=== PATIENT | male | born 1980 | race Caucasian/White ===

== ENCOUNTER 2016-10-26 09:07 | Emergency (ER) | payer OTHER ==
--- NOTE | 2016-10-26 11:25 | ED NURSING NOTES ---
Clinical Report - Nurses [facility] [address] [place] [address] 10/26/2016 9:08 Patient: FRANK MEDINA TRIAGE Triage time 09:13. Acuity: LEVEL 3. Chief Complaint: ABDOMINAL PAIN and NAUSEA. Alert. NITA COMA SCORE: [place] Coma Scale: 15- eyes open spontaneously (4); best verbal response- oriented x 4 (5); best motor response- obeys commands (6). --09:19 Cynthia Vasquez R.N. 09:13 10/26/16. BP: 163/89. HR: 47. RR: 18. O2 saturation: 100% on room air. Temp: 97.5 F (oral). Pain level now: 810. --09:19 Cynthia Vasquez R.N. Weight: 116.5 kg stated. Height/Length: 67 inches Per Patient. BMI: 40.3. --09:15 Cynthia Vasquez R.N. Medications None. --09:14 Cynthia Vasquez R.N. Allergies No Known Drug Allergy. --09:14 Cynthia Vasquez R.N. History Arrived by private vehicle. Historian: patient. Unaccompanied. Primary physician (none). Onset. (at about 0500). Describes the quality as "pain" and ( constant). Relates location as in the right upper quadrant. SOCIAL HX: Never smoker. Occasional alcohol use. No drug use. FALL RISK ASSESSMENT: Fall risk assessment completed. No fall risk identified. FUNCTIONAL ASSESSMENT: Functional assessment: no impairments noted. LEARNING NEEDS ASSESSMENT: The learning needs assessment revealed no barriers. --09:19 Cynthia Vasquez R.N. PROBLEMS: no known problems. ADDITIONAL SURGERIES: no known surgeries. Assessment GENERAL / NEURO / PSYCH: The patient is awake and alert, is oriented and cooperative and appears uncomfortable. He has good eye contact. RESPIRATORY: Respirations not labored. SKIN: Skin is warm and dry. --09:19 Pedro, Cynthia, R.N. Interventions ID band on patient. To treatment room. --09:19 Cynthia Vasquez R.N. PHYSICAL ASSESSMENT 09:30. Ambulatory to room. GENERAL / NEURO / PSYCH: The patient is awake and alert, appears uncomfortable and is oriented and cooperative. He appears uncomfortable and has good eye contact. RESPIRATORY: Respirations not labored. SKIN: Skin is warm and dry. --10:35 Cynthia Vasquez R.N. NURSING PROGRESS NOTES EKG time: (938). EKG was ordered, performed by a tech and shown to the ED physician. --09:41 Amauri Courtney 09:30 10/26/2016 Site #1 started via IV in the left hand with an 20g angiocath, with aseptic technique and good blood return; one attempt. Saline lock flushed with 10 mL saline. --09:45 Cynthia Vasquez R.N. 09:30 10/26/2016 Started bag #1 1000 mL IV Fluids IV NS (Saline); at 1000 mL/hr over 1 hour(s) via site #1 --09:46 Cynthia Vasquez R.N. 09:46 10/26/2016 Reglan (Metoclopramide HCl) IVP 10 mg given over 2 minute(s) via site #1. Allergies verified and confirmed 5 rights. IV patency established. IV site checked: no pain, redness, or swelling. IV flushed thoroughly pre- and post-medication administration. IVP given by RN. --09:46 Cynthia Vasquez R.N. 09:46 10/26/2016 PROTONIX (Pantoprazole Sodium) IVP 40 mg given over 5 minute(s) via site #1. Allergies verified and confirmed 5 rights. IV patency established. IV site checked: no pain, redness, or swelling. IV flushed thoroughly pre- and post-medication administration. IVP given by RN. --09:46 Cynthia Vasquez R.N. 09:47 10/26/2016 Zofran (Ondansetron HCl) IVP 4 mg given over 2 minute(s) via site #1. Allergies verified and confirmed 5 rights. IV patency established. IV site checked: no pain, redness, or swelling. IV flushed thoroughly pre- and post-medication administration. IVP given by RN. --09:47 Cynthia Vasquez R.N. 09:50 10/26/2016 Toradol IVP 15 mg given over 1 minute(s) via site #1. Allergies verified and confirmed 5 rights. IV patency established. IV site checked: no pain, redness, or swelling. IV flushed thoroughly pre- and post-medication administration. IVP given by RN. --09:50 Cynthia Vasquez R.N. 10:33 10/26/16. BP: 173/101. HR: 83. RR: 18. O2 saturation: 98% on room air. --10:34 Cynthia Vasquez R.N. 10:34 10/26/16. Reassessment after fluids administered and medication administered. He is sleeping. SKIN: Skin is warm and dry. --10:34 Cynthia Vasquez R.N. 09:30. satellite project site monitor, pulse oximeter and NIBP monitor placed on patient. Patient gowned. Head of bed elevated. Call light placed in reach. Side rails up x 2. Bed placed in lowest position. Brakes of bed on. --10:35 Cynthia Vasquez R.N. 11:05 US tech at bedside. --11:05 Cynthia Vasquez R.N. 12:18 10/26/2016 Site #1 removed upon discharge. Bandaid applied. --12:58 Sofiya Bhatt R.N. 12:18 10/26/2016 IV Fluids IV NS Discontinued: bag #1 infused upon discharge. Total amount infused: 1000 mL. IV patency established. IV site checked: no pain, redness, or swelling. IV flushed thoroughly. --12:58 Sofiya Bhatt R.N. DISPOSITION / DISCHARGE 12:25. Condition at departure: stable. No learning barriers present. Discharge instructions provided and reviewed with the patient. Reviewed medication(s) (vicodin, bentyl). Patient verbalized understanding. Written instructions provided in Egyptian. The patient was discharged home. He left the Emergency Department ambulatory and via private vehicle. Patient driving. --12:57 Sofiya Bhatt R.N. 12:25 10/26/16. BP: 140/68. HR: 80. RR: 22. O2 saturation: 98% on room air. Temp: deferred. Pain level now: 0/10. --12:57 Sofiya Bhatt R.N. Locked/Released at 10/26/2016 12:59 by Sofiya Bhatt R.N.
--- NOTE | 2016-10-26 11:25 | ED NURSING NOTES ---
Clinical Report - Nurses [facility] [address] [place] [address] 10/26/2016 9:08 Patient: FRANK MEDINA TRIAGE Triage time 09:13. Acuity: LEVEL 3. Chief Complaint: ABDOMINAL PAIN and NAUSEA. Alert. NITA COMA SCORE: [place] Coma Scale: 15- eyes open spontaneously (4); best verbal response- oriented x 4 (5); best motor response- obeys commands (6). --09:19 Cynthia Vasquez R.N. 09:13 10/26/16. BP: 163/89. HR: 47. RR: 18. O2 saturation: 100% on room air. Temp: 97.5 F (oral). Pain level now: 810. --09:19 Cynthia Vasquez R.N. Weight: 116.5 kg stated. Height/Length: 67 inches Per Patient. BMI: 40.3. --09:15 Cynthia Vasquez R.N. Medications None. --09:14 Cynthia Vasquez R.N. Allergies No Known Drug Allergy. --09:14 Cynthia Vasquez R.N. History Arrived by private vehicle. Historian: patient. Unaccompanied. Primary physician (none). Onset. (at about 0500). Describes the quality as "pain" and ( constant). Relates location as in the right upper quadrant. SOCIAL HX: Never smoker. Occasional alcohol use. No drug use. FALL RISK ASSESSMENT: Fall risk assessment completed. No fall risk identified. FUNCTIONAL ASSESSMENT: Functional assessment: no impairments noted. LEARNING NEEDS ASSESSMENT: The learning needs assessment revealed no barriers. --09:19 Cynthia Vasquez R.N. PROBLEMS: no known problems. ADDITIONAL SURGERIES: no known surgeries. Assessment GENERAL / NEURO / PSYCH: The patient is awake and alert, is oriented and cooperative and appears uncomfortable. He has good eye contact. RESPIRATORY: Respirations not labored. SKIN: Skin is warm and dry. --09:19 Pedro, Cynthia, R.N. Interventions ID band on patient. To treatment room. --09:19 Cynthia Vasquez R.N. PHYSICAL ASSESSMENT 09:30. Ambulatory to room. GENERAL / NEURO / PSYCH: The patient is awake and alert, appears uncomfortable and is oriented and cooperative. He appears uncomfortable and has good eye contact. RESPIRATORY: Respirations not labored. SKIN: Skin is warm and dry. --10:35 Cynthia Vasquez R.N. NURSING PROGRESS NOTES EKG time: (938). EKG was ordered, performed by a tech and shown to the ED physician. --09:41 Amauri Courtney 09:30 10/26/2016 Site #1 started via IV in the left hand with an 20g angiocath, with aseptic technique and good blood return; one attempt. Saline lock flushed with 10 mL saline. --09:45 Cynthia Vasquez R.N. 09:30 10/26/2016 Started bag #1 1000 mL IV Fluids IV NS (Saline); at 1000 mL/hr over 1 hour(s) via site #1 --09:46 Cynthia Vasquez R.N. 09:46 10/26/2016 Reglan (Metoclopramide HCl) IVP 10 mg given over 2 minute(s) via site #1. Allergies verified and confirmed 5 rights. IV patency established. IV site checked: no pain, redness, or swelling. IV flushed thoroughly pre- and post-medication administration. IVP given by RN. --09:46 Cynthia Vasquez R.N. 09:46 10/26/2016 PROTONIX (Pantoprazole Sodium) IVP 40 mg given over 5 minute(s) via site #1. Allergies verified and confirmed 5 rights. IV patency established. IV site checked: no pain, redness, or swelling. IV flushed thoroughly pre- and post-medication administration. IVP given by RN. --09:46 Cynthia Vasquez R.N. 09:47 10/26/2016 Zofran (Ondansetron HCl) IVP 4 mg given over 2 minute(s) via site #1. Allergies verified and confirmed 5 rights. IV patency established. IV site checked: no pain, redness, or swelling. IV flushed thoroughly pre- and post-medication administration. IVP given by RN. --09:47 Cynthia Vasquez R.N. 09:50 10/26/2016 Toradol IVP 15 mg given over 1 minute(s) via site #1. Allergies verified and confirmed 5 rights. IV patency established. IV site checked: no pain, redness, or swelling. IV flushed thoroughly pre- and post-medication administration. IVP given by RN. --09:50 Cynthia Vasquez R.N. 10:33 10/26/16. BP: 173/101. HR: 83. RR: 18. O2 saturation: 98% on room air. --10:34 Cynthia Vasquez R.N. 10:34 10/26/16. Reassessment after fluids administered and medication administered. He is sleeping. SKIN: Skin is warm and dry. --10:34 Cynthia Vasquez R.N. 09:30. programmer business, pulse oximeter and NIBP monitor placed on patient. Patient gowned. Head of bed elevated. Call light placed in reach. Side rails up x 2. Bed placed in lowest position. Brakes of bed on. --10:35 Cynthia Vasquez R.N. 11:05 US tech at bedside. --11:05 Cynthia Vasquez R.N. 12:18 10/26/2016 Site #1 removed upon discharge. Bandaid applied. --12:58 Sofiya Bhatt R.N. 12:18 10/26/2016 IV Fluids IV NS Discontinued: bag #1 infused upon discharge. Total amount infused: 1000 mL. IV patency established. IV site checked: no pain, redness, or swelling. IV flushed thoroughly. --12:58 Sofiya Bhatt R.N. DISPOSITION / DISCHARGE 12:25. Condition at departure: stable. No learning barriers present. Discharge instructions provided and reviewed with the patient. Reviewed medication(s) (vicodin, bentyl). Patient verbalized understanding. Written instructions provided in French. The patient was discharged home. He left the Emergency Department ambulatory and via private vehicle. Patient driving. --12:57 Sofiya Bhatt R.N. 12:25 10/26/16. BP: 140/68. HR: 80. RR: 22. O2 saturation: 98% on room air. Temp: deferred. Pain level now: 0/10. --12:57 Sofiya Bhatt R.N. Locked/Released at 10/26/2016 12:59 by Sofiya Bhatt R.N.
--- NOTE | 2016-10-26 11:25 | ED CLINICAL REPORT ---
Clinical Report - Physicians/Mid Levels [facility] [address] [place] [place] [address] 10/26/2016 9:08 Patient: FRANK MEDINA Time Seen: 09:15. Arrived- By private vehicle. Historian- patient. HISTORY OF PRESENT ILLNESS Chief Complaint: ABDOMINAL PAIN and NAUSEA. At its maximum, severity described as moderate. When seen in the E.D., severity described as moderate. Modifying factors- worsened by movement and food. Relieved by rest. It is described as "pain" and it is described as located in the right upper quadrant and in the upper abdomen and radiating to the right upper back. This started today about 4 hours ago and is still present. It was gradual in onset and has been waxing/waning. The patient has had nausea. No vomiting or diarrhea. Similar symptoms previously: Recent medical care: Not recently seen/assessed. REVIEW OF SYSTEMS No constipation, black stools, hematemesis, difficulty with urination or pain with urination. No urinary frequency, bloody stools, fever, headache or sore throat. No chest pain, difficulty breathing, cough or skin rash. Denies current . The patient has had back pain. All systems otherwise negative, except as recorded above. PAST HISTORY See nurses notes. No history of peptic ulcer. No history of gallstones, bowel obstruction, hyperlipidemia or diabetes mellitus. Has not had urinary calculi. Surgeries: No history of previous surgery. SOCIAL HISTORY Never smoker. Occasional alcohol use. No drug use. ADDITIONAL NOTES The nursing notes have been reviewed. PHYSICAL EXAM Vital Signs: 10/26/2016 09:13 BP: 163/89. HR: 47. RR: 18. O2 saturation: 100%. Temp: 97.5 F. Pain level now: 8/10. Appearance: Alert. Oriented X3. Patient in moderate distress. Eyes: Pupils equal, round and reactive to light. Eyes normal inspection. No scleral icterus or pale conjunctivae. ENT: Nose normal. Pharynx normal. No pharyngeal erythema or tonsillar exudate. The mucous membranes are not dry. Neck: Normal inspection. Neck supple. CVS: Bradycardia. Heart sounds normal. Pulses normal. Respiratory: No respiratory distress. Breath sounds normal. Chest nontender. Abdomen: Soft. Moderate tenderness in the right upper quadrant. Positive Russo's sign. No organomegaly. No mass. No rebound tenderness or guarding. Back: Normal inspection. Skin: Skin warm and dry. Normal skin color. No rash. Normal skin turgor. Extremities: Extremities exhibit normal ROM. No calf tenderness. No lower extremity edema. Neuro: Oriented X 3. No motor deficit. No sensory deficit. LABS, X-RAYS, AND EKG EKG: EKG time: (09:39). Narrow-complex bradycardia (ventricular rate 45). Sinus bradycardia. Normal P waves. Normal SOTERO. Wide QRS- intraventricular conduction delay. Non-specific ST segment / T wave abnormalities. The study has been interpreted contemporaneously by me. The EKG appears to be a good tracing. Abdominal Sonogram: Multiple gallstones are present (mobile). Common duct is normal. Normal liver. Pancreas normal. Aorta normal. Kidney normal. Spleen normal. No free fluid. No gallbladder wall thickening, pericholecystic fluid, dilated common duct or common duct stones. The study was interpreted contemporaneously by me. The study was discussed with the radiologist (via tech). Laboratory Tests: UA-Culture if indicated: (JULIO CÉSAR: 10/26/2016 09:25) ( MsgRcvd 10/26/2016 09:43) Final results Test Result Flag Units (Reference) URINE COLOR YELLOW URINE APPEARANCE CLEAR URINE GLUCOSE NEGATIVE (NEGATIVE) URINE BILIRUBIN NEGATIVE (NEGATIVE) URINE KETONE NEGATIVE (NEGATIVE) URINE SPECIFIC GRAVITY >= 1.030 (1.010-1.030) URINE PH 5.5 (5.0-8.0) URINE PROTEIN 1+ (NEGATIVE) URINE UROBILINOGEN 0.2 EU/dL (0.2-1.0) URINE NITRITE NEGATIVE (NEGATIVE) URINE BLOOD NEGATIVE (NEGATIVE) URINE LEUK ESTERASE NEGATIVE (NEGATIVE) URINE RBC NONE SEEN rbc/hpf (0-1) URINE WBC RARE wbc/hpf (0-1) URINE EPITHELIAL CELLS NONE SEEN EPI/hpf (0-5) URINE BACTERIA NONE SEEN (NONE SEEN) URINE COMMENT CULT NOT INDICATED TRACE MUCUSURINE CULTURES ARE SET-UP BASED ON THE FOLLOWING CRITERIA:POSITIVE NITRITEPOSITIVE LEUKOCYTE ESTERASEGREATER THAN 10 WHITE BLOOD CELLSMODERATE (2+) OR GREATER BACTERIA CBC w Diff: (JULIO CÉSAR: 10/26/2016 09:54) ( [facility] 10/26/2016 10:02) Final results Test Result Flag Units (Reference) WHITE BLOOD COUNT 14.0 H K/uL (4.5-11.5) RED BLOOD COUNT 4.78 M/uL (4.50-5.90) HEMOGLOBIN 13.4 L gm/dL (13.5-17.5) HEMATOCRIT 41.1 % (41.0-53.0) MEAN CELL VOLUME 86 fL (80-100) MEAN CORPUSCULAR HGB 28 pg (26-34) MEAN CORPUSCULAR HGB CONC 33 g/dL (31-37) RED CELL DISTRIBUTION WIDTH 13.6 % (11.6-14.8) PLATELET COUNT 215 K/uL (150-400) NEUTROPHIL % 77.3 H % (50-75) LYMPH % 13.6 L % (25-40) MONO % 5.6 % (3-14) EOSINOPHIL % 3.2 % (0-4) BASOPHIL % 0.3 % (0-2) PT with INR: (JULIO CÉSAR: 10/26/2016 09:54) ( [facility] 10/26/2016 10:11) Final results Test Result Flag Units (Reference) INR 0.9 (0.8-1.2) Low Intensity Therapy: INR 1.5-2.0 PT range 18.5-23.1Mod.Intensity Therapy: INR 2.0-3.0 PT range 23.1-31.5High Intensity Therapy: INR 2.5-3.5 PT range 27.4-35.5High Intensity Therapy 2: INR 3.0-4.0 PT range 31.5-39.3 BNP: (JULIO CÉSAR: 10/26/2016 09:54) ( [facility] 10/26/2016 10:19) Final results Test Result Flag Units (Reference) B-TYPE NATRIURETIC PEPTIDE 29.3 pg/ml (5-100) CHEM 13 PANEL: (JULIO CÉSAR: 10/26/2016 09:54) ( MsgRcvd 10/26/2016 10:26) Final results Test Result Flag Units (Reference) GLUCOSE 160 H mg/dL (70-110) BUN 21 H mg/dL (7-18) CREATININE 1.2 mg/dL (0.6-1.3) Estimated GFR >60 mL/min Estimated GFR- >60 mL/min Note: Persistent reduction over 3 months in eGFR<60 mL/min/1.73 m2 defines CKD. Patients with eGFR values>=60 mL/min/1.73 m2 may also have CKD if evidence ofpersistent proteinuria. Additional information may be foundat www.kidney.org. SODIUM 143 mmol/L (136-145) POTASSIUM 3.9 mmol/L (3.5-5.1) CHLORIDE 107 mmol/L (98-107) CARBON DIOXIDE 26 mmol/L (21-32) CALCIUM 9.0 mg/dL (8.5-10.1) TOTAL PROTEIN 7.6 g/dL (6.4-8.2) ALBUMIN 3.9 g/dL (3.3-5.0) BILIRUBIN, TOTAL 0.3 mg/dL (0.0-1.0) ALKALINE PHOSPHATASE 75 U/L (46-116) AST (SGOT) 20 U/L (15-37) ALT (SGPT) 58 U/L (12-78) CPK 49 U/L (24-260) MAGNESIUM 2.1 mg/dL (1.8-2.4) LIPASE 144 U/L (73-393) AMYLASE 31 U/L (25-115) TROPONIN I <0.05 ng/mL (0.00-1.5) TROPONIN REFERENCE RANGE:<0.1 NEGATIVE0.1-1.5 INDETERMINANT>1.5 POSITIVE . Pulse Oximetry: 10/26/2016 09:13 O2 saturation: 100%. (FIO2 - room air). Interpretation: normal. PROGRESS AND PROCEDURES Course of Care: Normal Saline 2 liters IVPB given. Toradol 15 mg IVP given. Zofran 4 mg IVP given. Protonix 40 mg IVP given. Reglan 10 mg IVP given. 11:23 10/26/16. Patient is stable. Physical exam findings are improved. Symptoms much better. Not c/w acute cholecystitis now, but very c/w biliary colic. I will provide pain med and bentyl for further treatment of exacerbations and f/u info for surgeon. No clear indication for admission now. Patient/family counseled. Disposition: Discharged. Condition: stable and improved. CLINICAL IMPRESSION Biliary colic with multiple gallstones. No cholecystitis. Essential hypertension. Morbid obesity (BMI >=40) due to excess calories. INSTRUCTIONS Rest. Do not work. Do not go to school for three days. Drink plenty of fluids. Avoid alcohol. Avoid fatty, fried/greasy, lactose-containing (such as milk, cheese and ice cream), salty and spicy foods. No alcohol until released. Warnings: Further evaluation is necessary in order to recheck abnormal lab, obtain test results, conduct further tests and assess the possibility of serious illness. It is very important to follow up with a physician. SEDATIVE MEDICATION: You were given sedative medication during your visit. Do not drive or operate dangerous machinery. CONTROLLED SUBSTANCE WARNINGS. GENERAL WARNINGS: Return or contact your physician immediately if your condition worsens or changes unexpectedly, if not improving as expected, or if other problems arise. Prescription Medications: Hydrocodone/APAP 5mg / 325mg: take 1-2 orally every 6 hours as needed for pain. Dispense ten (10). No refill. Bentyl 20 mg tablets: take 1 orally every 6 hours as needed. Dispense thirty (30). No refills. Substitution is permissible. Follow-up: Follow up with your doctor. Call for the next available appointment. Screening today revealed the patient's blood pressure to be in the hypertensive range. The patient should follow up with a primary care provider for blood pressure management. Follow-up with: Robert Horner MD, General Surgeon, , [facility], [address] [place] [address] Follow up. Call for the next available appointment. Follow-up with: Devon Lopez MD, Family Practice, , [facility], [address] [place] [address] Follow up. Call for the next available appointment. (Electronically signed by Robert Vasquez DO 10/26/2016 14:26)
--- NOTE | 2016-10-26 11:25 | ED ORDER SUMMARY ---
..... Patient: FRANK MEDINA OrderSheet [facility] VisitID: [id number] [place] [address] 36y, M Registration Date/Time: 10/26/2016 ORDER SHEET Weight: 116.5 kg (stated) Allergies: No Known Drug Allergy GENERAL ORDERS: UA-Culture if indicated Urgent (10/26/2016 PHutchinson DO) (Ack 9:23 KHoerner) (9:47 Roberto R.N.) Amylase Urgent (10/26/2016 PHutchinson DO) (Ack 9:23 KHoerner) (12:24 DDean R.N.) Lipase Urgent (10/26/2016 PHutchinson DO) (Ack 9:23 KHoerner) (12:24 DDean R.N.) PT with INR Urgent (10/26/2016 PHutchinson DO) (Ack 9:23 KHoerner) (12:24 DDean R.N.) Cardiac Panel Stat (:10/26/2016 PHutchinson DO) (Ack 9:23 KHoerner) (12:24 DDean R.N.) BNP Urgent (10/26/2016 PHutchinson DO) (Ack 9:23 KHoerner) (12:24 DDean R.N.) NPO (:10/26/2016 PHutchinson DO) (9:47 Roberto R.N.) EKG - ER Stat (:10/26/2016 PHutchinson DO) (9:40 Alexander) Brand Director (Continuous) (:10/26/2016 PHutchinson DO) (9:47 Roberto R.N.) US Abdomen Limited (No) Urgent (10:11 10/26/2016 PHutchinson DO) (Ack 10:18 KHoerner) (12:24 DDean R.N.) MEDICATION ORDERS: IV FLUIDS: IV NS : initial bolus 1000 mL (1000 mL/hr), then 500 mL/hr for X2 (NOW) (09:10/26/2016 [facility]) (Ack 9:22 Roberto R.N.) (9:46 Roberto R.N.) Reglan IV 10 mg (NOW) (09:10/26/2016 [facility]) (Ack 9:22 Roberto R.N.) (9:46 Roberto R.N.) Protonix IVP 40mg 40 mg (Mix in NS 10ml over 2min) (:10/26/2016 [facility]) (Ack 9:22 Roberto R.N.) (9:46 Roberto R.N.) Zofran IV 4 mg (NOW) (:10/26/2016 [facility]) (Ack 9:22 Roberto R.N.) (9:47 Roberto R.N.) Toradol IV 15 mg (NOW) (09:10/26/2016 [facility]) (Ack 9:47 Roberto R.N.) (9:50 Roberto R.N.) ORDER SHEET NOTES: [Electronically signed by Sofiya Bhatt R.N. (12:59 10/26/2016)] [Electronically signed by Robert Vasquez DO (14:26 10/26/2016)] [Electronically locked/signed by Sofiya Bhatt R.N. (12:59 10/26/2016)]
--- NOTE | 2016-10-26 11:25 | ED ORDER SUMMARY ---
..... Patient: FRANK MEDINA OrderSheet [facility] VisitID: [id number] [place] [address] 36y, M Registration Date/Time: 10/26/2016 ORDER SHEET Weight: 116.5 kg (stated) Allergies: No Known Drug Allergy GENERAL ORDERS: UA-Culture if indicated Urgent (10/26/2016 PHutchinson DO) (Ack 9:23 KHoerner) (9:47 Roberto R.N.) Amylase Urgent (10/26/2016 PHutchinson DO) (Ack 9:23 KHoerner) (12:24 DDean R.N.) Lipase Urgent (10/26/2016 PHutchinson DO) (Ack 9:23 KHoerner) (12:24 DDean R.N.) PT with INR Urgent (10/26/2016 PHutchinson DO) (Ack 9:23 KHoerner) (12:24 DDean R.N.) Cardiac Panel Stat (:10/26/2016 PHutchinson DO) (Ack 9:23 KHoerner) (12:24 DDean R.N.) BNP Urgent (10/26/2016 PHutchinson DO) (Ack 9:23 KHoerner) (12:24 DDean R.N.) NPO (:10/26/2016 PHutchinson DO) (9:47 Roberto R.N.) EKG - ER Stat (:10/26/2016 PHutchinson DO) (9:40 Alexander) Commercial Print Salesman (Continuous) (:10/26/2016 PHutchinson DO) (9:47 Roberto R.N.) US Abdomen Limited (No) Urgent (10:11 10/26/2016 PHutchinson DO) (Ack 10:18 KHoerner) (12:24 DDean R.N.) MEDICATION ORDERS: IV FLUIDS: IV NS : initial bolus 1000 mL (1000 mL/hr), then 500 mL/hr for X2 (NOW) (09:10/26/2016 [facility]) (Ack 9:22 Roberto R.N.) (9:46 Roberto R.N.) Reglan IV 10 mg (NOW) (09:10/26/2016 [facility]) (Ack 9:22 Roberto R.N.) (9:46 Roberto R.N.) Protonix IVP 40mg 40 mg (Mix in NS 10ml over 2min) (:10/26/2016 [facility]) (Ack 9:22 Roberto R.N.) (9:46 Roberto R.N.) Zofran IV 4 mg (NOW) (:10/26/2016 [facility]) (Ack 9:22 Roberto R.N.) (9:47 Roberto R.N.) Toradol IV 15 mg (NOW) (09:10/26/2016 [facility]) (Ack 9:47 Roberto R.N.) (9:50 Roberto R.N.) ORDER SHEET NOTES: [Electronically signed by Sofiya Bhatt R.N. (12:59 10/26/2016)] [Electronically signed by Robert Vasquez DO (14:26 10/26/2016)] [Electronically locked/signed by Sofiya Bhatt R.N. (12:59 10/26/2016)]
--- NOTE | 2016-10-26 11:25 | ED CLINICAL REPORT ---
Clinical Report - Physicians/Mid Levels Located Within [facility] [address] [place] [address] 10/26/2016 9:08 Patient: FRANK MEDINA Time Seen: 09:15. Arrived- By private vehicle. Historian- patient. HISTORY OF PRESENT ILLNESS Chief Complaint: ABDOMINAL PAIN and NAUSEA. At its maximum, severity described as moderate. When seen in the E.D., severity described as moderate. Modifying factors- worsened by movement and food. Relieved by rest. It is described as "pain" and it is described as located in the right upper quadrant and in the upper abdomen and radiating to the right upper back. This started today about 4 hours ago and is still present. It was gradual in onset and has been waxing/waning. The patient has had nausea. No vomiting or diarrhea. Similar symptoms previously: Recent medical care: Not recently seen/assessed. REVIEW OF SYSTEMS No constipation, black stools, hematemesis, difficulty with urination or pain with urination. No urinary frequency, bloody stools, fever, headache or sore throat. No chest pain, difficulty breathing, cough or skin rash. Denies current . The patient has had back pain. All systems otherwise negative, except as recorded above. PAST HISTORY See nurses notes. No history of peptic ulcer. No history of gallstones, bowel obstruction, hyperlipidemia or diabetes mellitus. Has not had urinary calculi. Surgeries: No history of previous surgery. SOCIAL HISTORY Never smoker. Occasional alcohol use. No drug use. ADDITIONAL NOTES The nursing notes have been reviewed. PHYSICAL EXAM Vital Signs: 10/26/2016 09:13 BP: 163/89. HR: 47. RR: 18. O2 saturation: 100%. Temp: 97.5 F. Pain level now: 8/10. Appearance: Alert. Oriented X3. Patient in moderate distress. Eyes: Pupils equal, round and reactive to light. Eyes normal inspection. No scleral icterus or pale conjunctivae. ENT: Nose normal. Pharynx normal. No pharyngeal erythema or tonsillar exudate. The mucous membranes are not dry. Neck: Normal inspection. Neck supple. CVS: Bradycardia. Heart sounds normal. Pulses normal. Respiratory: No respiratory distress. Breath sounds normal. Chest nontender. Abdomen: Soft. Moderate tenderness in the right upper quadrant. Positive Russo's sign. No organomegaly. No mass. No rebound tenderness or guarding. Back: Normal inspection. Skin: Skin warm and dry. Normal skin color. No rash. Normal skin turgor. Extremities: Extremities exhibit normal ROM. No calf tenderness. No lower extremity edema. Neuro: Oriented X 3. No motor deficit. No sensory deficit. LABS, X-RAYS, AND EKG EKG: EKG time: (09:39). Narrow-complex bradycardia (ventricular rate 45). Sinus bradycardia. Normal P waves. Normal SOTERO. Wide QRS- intraventricular conduction delay. Non-specific ST segment / T wave abnormalities. The study has been interpreted contemporaneously by me. The EKG appears to be a good tracing. Abdominal Sonogram: Multiple gallstones are present (mobile). Common duct is normal. Normal liver. Pancreas normal. Aorta normal. Kidney normal. Spleen normal. No free fluid. No gallbladder wall thickening, pericholecystic fluid, dilated common duct or common duct stones. The study was interpreted contemporaneously by me. The study was discussed with the radiologist (via tech). Laboratory Tests: UA-Culture if indicated: (JULIO CÉSAR: 10/26/2016 09:25) ( MsgRcvd 10/26/2016 09:43) Final results Test Result Flag Units (Reference) URINE COLOR YELLOW URINE APPEARANCE CLEAR URINE GLUCOSE NEGATIVE (NEGATIVE) URINE BILIRUBIN NEGATIVE (NEGATIVE) URINE KETONE NEGATIVE (NEGATIVE) URINE SPECIFIC GRAVITY >= 1.030 (1.010-1.030) URINE PH 5.5 (5.0-8.0) URINE PROTEIN 1+ (NEGATIVE) URINE UROBILINOGEN 0.2 EU/dL (0.2-1.0) URINE NITRITE NEGATIVE (NEGATIVE) URINE BLOOD NEGATIVE (NEGATIVE) URINE LEUK ESTERASE NEGATIVE (NEGATIVE) URINE RBC NONE SEEN rbc/hpf (0-1) URINE WBC RARE wbc/hpf (0-1) URINE EPITHELIAL CELLS NONE SEEN EPI/hpf (0-5) URINE BACTERIA NONE SEEN (NONE SEEN) URINE COMMENT CULT NOT INDICATED TRACE MUCUSURINE CULTURES ARE SET-UP BASED ON THE FOLLOWING CRITERIA:POSITIVE NITRITEPOSITIVE LEUKOCYTE ESTERASEGREATER THAN 10 WHITE BLOOD CELLSMODERATE (2+) OR GREATER BACTERIA CBC w Diff: (JULIO CÉSAR: 10/26/2016 09:54) ( [facility] 10/26/2016 10:02) Final results Test Result Flag Units (Reference) WHITE BLOOD COUNT 14.0 H K/uL (4.5-11.5) RED BLOOD COUNT 4.78 M/uL (4.50-5.90) HEMOGLOBIN 13.4 L gm/dL (13.5-17.5) HEMATOCRIT 41.1 % (41.0-53.0) MEAN CELL VOLUME 86 fL (80-100) MEAN CORPUSCULAR HGB 28 pg (26-34) MEAN CORPUSCULAR HGB CONC 33 g/dL (31-37) RED CELL DISTRIBUTION WIDTH 13.6 % (11.6-14.8) PLATELET COUNT 215 K/uL (150-400) NEUTROPHIL % 77.3 H % (50-75) LYMPH % 13.6 L % (25-40) MONO % 5.6 % (3-14) EOSINOPHIL % 3.2 % (0-4) BASOPHIL % 0.3 % (0-2) PT with INR: (JULIO CÉSAR: 10/26/2016 09:54) ( [facility] 10/26/2016 10:11) Final results Test Result Flag Units (Reference) INR 0.9 (0.8-1.2) Low Intensity Therapy: INR 1.5-2.0 PT range 18.5-23.1Mod.Intensity Therapy: INR 2.0-3.0 PT range 23.1-31.5High Intensity Therapy: INR 2.5-3.5 PT range 27.4-35.5High Intensity Therapy 2: INR 3.0-4.0 PT range 31.5-39.3 BNP: (JULIO CÉSAR: 10/26/2016 09:54) ( [facility] 10/26/2016 10:19) Final results Test Result Flag Units (Reference) B-TYPE NATRIURETIC PEPTIDE 29.3 pg/ml (5-100) CHEM 13 PANEL: (JULIO CÉSAR: 10/26/2016 09:54) ( MsgRcvd 10/26/2016 10:26) Final results Test Result Flag Units (Reference) GLUCOSE 160 H mg/dL (70-110) BUN 21 H mg/dL (7-18) CREATININE 1.2 mg/dL (0.6-1.3) Estimated GFR >60 mL/min Estimated GFR- >60 mL/min Note: Persistent reduction over 3 months in eGFR<60 mL/min/1.73 m2 defines CKD. Patients with eGFR values>=60 mL/min/1.73 m2 may also have CKD if evidence ofpersistent proteinuria. Additional information may be foundat www.[email or web address].org. SODIUM 143 mmol/L (136-145) POTASSIUM 3.9 mmol/L (3.5-5.1) CHLORIDE 107 mmol/L (98-107) CARBON DIOXIDE 26 mmol/L (21-32) CALCIUM 9.0 mg/dL (8.5-10.1) TOTAL PROTEIN 7.6 g/dL (6.4-8.2) ALBUMIN 3.9 g/dL (3.3-5.0) BILIRUBIN, TOTAL 0.3 mg/dL (0.0-1.0) ALKALINE PHOSPHATASE 75 U/L (46-116) AST (SGOT) 20 U/L (15-37) ALT (SGPT) 58 U/L (12-78) CPK 49 U/L (24-260) MAGNESIUM 2.1 mg/dL (1.8-2.4) LIPASE 144 U/L (73-393) AMYLASE 31 U/L (25-115) TROPONIN I <0.05 ng/mL (0.00-1.5) TROPONIN REFERENCE RANGE:<0.1 NEGATIVE0.1-1.5 INDETERMINANT>1.5 POSITIVE . Pulse Oximetry: 10/26/2016 09:13 O2 saturation: 100%. (FIO2 - room air). Interpretation: normal. PROGRESS AND PROCEDURES Course of Care: Normal Saline 2 liters IVPB given. Toradol 15 mg IVP given. Zofran 4 mg IVP given. Protonix 40 mg IVP given. Reglan 10 mg IVP given. 11:23 10/26/16. Patient is stable. Physical exam findings are improved. Symptoms much better. Not c/w acute cholecystitis now, but very c/w biliary colic. I will provide pain med and bentyl for further treatment of exacerbations and f/u info for surgeon. No clear indication for admission now. Patient/family counseled. Disposition: Discharged. Condition: stable and improved. CLINICAL IMPRESSION Biliary colic with multiple gallstones. No cholecystitis. Essential hypertension. Morbid obesity (BMI >=40) due to excess calories. INSTRUCTIONS Rest. Do not work. Do not go to school for three days. Drink plenty of fluids. Avoid alcohol. Avoid fatty, fried/greasy, lactose-containing (such as milk, cheese and ice cream), salty and spicy foods. No alcohol until released. Warnings: Further evaluation is necessary in order to recheck abnormal lab, obtain test results, conduct further tests and assess the possibility of serious illness. It is very important to follow up with a physician. SEDATIVE MEDICATION: You were given sedative medication during your visit. Do not drive or operate dangerous machinery. CONTROLLED SUBSTANCE WARNINGS. GENERAL WARNINGS: Return or contact your physician immediately if your condition worsens or changes unexpectedly, if not improving as expected, or if other problems arise. Prescription Medications: Hydrocodone/APAP 5mg / 325mg: take 1-2 orally every 6 hours as needed for pain. Dispense ten (10). No refill. Bentyl 20 mg tablets: take 1 orally every 6 hours as needed. Dispense thirty (30). No refills. Substitution is permissible. Follow-up: Follow up with your doctor. Call for the next available appointment. Screening today revealed the patient's blood pressure to be in the hypertensive range. The patient should follow up with a primary care provider for blood pressure management. Follow-up with: Robert Horner MD, General Surgeon, , [facility], [address] [place] [address] Follow up. Call for the next available appointment. Follow-up with: Devon Lopez MD, Family Practice, , [facility], [address] [place] [address] Follow up. Call for the next available appointment. (Electronically signed by Robert Vasquez DO 10/26/2016 14:26)
--- NOTE | 2016-10-26 12:02 | DIAGNOSTIC IMAGING REPORT ---
PROCEDURE: US ABDOMEN ULTRASOUND-LIMITED INDICATION: RUQ PAIN TECHNIQUE: Sheppard scale and color Doppler sonographic images of the abdomen were obtained without comparison. COMPARISON: None. FINDINGS: The liver is enlarged measuring 21.8 centimeters. Two hemangiomas are noted in the liver, one in the anterior portion of the right lobe and the second in the posterior portion right lobe. One measures 18 mm the other measures 14 mm. The gallbladder contains multiple mobile stones measure 5 mm in diameter. The wall is normal thickness measuring 2.4 meters No pericholecystic fluid or Russo sign. The extrahepatic common duct is normal measuring 4.9 mm The visualized pancreas is slightly heterogeneous. The abdominal aorta is normal in its course and caliber. The retrohepatic inferior vena cava is patent. There is appropriate hepatopetal flow in the portal vein. The right kidney measures 12.4 cm in length. There is no perihepatic or perisplenic ascites. IMPRESSION: 1. Cholelithiasis. 2. Hepatomegaly
--- NOTE | 2016-10-26 14:26 | ED MED RECONCILIATION SUMMARY ---
Patient: FRANK MEDINA Medication Reconciliation Report [facility] VisitID: [id number] [place] [address] 36y, M Registration Date/Time: 10/26/2016 Weight: 116.5 kg Height/Length: 67 in. BMI: 40.3 ALLERGIES: No Known Drug Allergy The patient's Home Medications are listed below: NONE. The source(s) of the original Home Medication information: Not obtained. The following Medications were given to the patient in the Emergency Department: IV NS IV Fluids bolus 0, then 1000 mL/hr, administered: 10/26/2016 9:30:00 AM Reglan [IVP] IVP 10 mg, administered: 10/26/2016 9:46:00 AM PROTONIX [IVP] IVP 40 mg, administered: 10/26/2016 9:46:00 AM Zofran [IVP] IVP 4 mg, administered: 10/26/2016 9:47:00 AM Toradol [IVP] IVP 15 mg, administered: 10/26/2016 9:50:00 AM The following Medications were prescribed to the patient: Hydrocodone/APAP 5mg / 325mg: take 1-2 orally every 6 hours as needed for pain. Dispense ten (10). No refill. -- Robert Vasquez DO Bentyl 20 mg tablets: take 1 orally every 6 hours as needed. Dispense thirty (30). No refills. Substitution is permissible. -- Robert Vasquez DO
--- NOTE | 2016-10-26 14:26 | ED MED RECONCILIATION SUMMARY ---
Patient: FRANK MEDINA Medication Reconciliation Report [facility] VisitID: [id number] [place] [address] 36y, M Registration Date/Time: 10/26/2016 Weight: 116.5 kg Height/Length: 67 in. BMI: 40.3 ALLERGIES: No Known Drug Allergy The patient's Home Medications are listed below: NONE. The source(s) of the original Home Medication information: Not obtained. The following Medications were given to the patient in the Emergency Department: IV NS IV Fluids bolus 0, then 1000 mL/hr, administered: 10/26/2016 9:30:00 AM Reglan [IVP] IVP 10 mg, administered: 10/26/2016 9:46:00 AM PROTONIX [IVP] IVP 40 mg, administered: 10/26/2016 9:46:00 AM Zofran [IVP] IVP 4 mg, administered: 10/26/2016 9:47:00 AM Toradol [IVP] IVP 15 mg, administered: 10/26/2016 9:50:00 AM The following Medications were prescribed to the patient: Hydrocodone/APAP 5mg / 325mg: take 1-2 orally every 6 hours as needed for pain. Dispense ten (10). No refill. -- Robert Vasquez DO Bentyl 20 mg tablets: take 1 orally every 6 hours as needed. Dispense thirty (30). No refills. Substitution is permissible. -- Robert Vasquez DO
--- NOTE | 2016-10-26 14:26 | ED DISCHARGE INSTRUCTIONS ---
Patient: FRANK MEDINA General Instructions [facility] VisitID: [id number] [place] [address] 36y, M Registration Date/Time: 10/26/2016 Biliary colic with multiple gallstones. No cholecystitis. Essential hypertension. Morbid obesity (BMI >=40) due to excess calories. INSTRUCTIONS Rest. Do not work. Do not go to school for three days. Drink plenty of fluids. Avoid alcohol. Avoid fatty, fried/greasy, lactose-containing (such as milk, cheese and ice cream), salty and spicy foods. No alcohol until released. Warnings: Further evaluation is necessary in order to recheck abnormal lab, obtain test results, conduct further tests and assess the possibility of serious illness. It is very important to follow up with a physician. SEDATIVE MEDICATION: You were given sedative medication during your visit. Do not drive or operate dangerous machinery. CONTROLLED SUBSTANCE WARNINGS. GENERAL WARNINGS: Return or contact your physician immediately if your condition worsens or changes unexpectedly, if not improving as expected, or if other problems arise. Prescription Medications: Hydrocodone/APAP 5mg / 325mg: take 1-2 orally every 6 hours as needed for pain. Dispense ten (10). No refill. Bentyl 20 mg tablets: take 1 orally every 6 hours as needed. Dispense thirty (30). No refills. Substitution is permissible. Follow-up: Follow up with your doctor. Call for the next available appointment. Screening today revealed the patient's blood pressure to be in the hypertensive range. The patient should follow up with a primary care provider for blood pressure management. Follow-up with: Robert Horner MD, General Surgeon, , [facility], [address] [place] [address] Follow up. Call for the next available appointment. Follow-up with: Devon Lopez MD, Family Practice, , [facility], [address] [place] [address] Follow up. Call for the next available appointment. ADDITIONAL INFORMATION GallstonesWith Biliary Colic [Confirmed Dx] The abdominal pain that you have today is due to spasm of the gallbladder. The gallbladder is a small sac under the liver which stores and releases bile. Bile is a fluid that aids in the digestion of fat. A gallstone may form inside the gallbladder and block the flow of bile fluid. This causes mild to severe crampy pain in the mid or right upper abdomen with nausea and vomiting. Home Care: Rest in bed and follow a clear liquid diet until feeling better. If pain or nausea medicine was given to help with your symptoms, take these as directed. Fat in your diet makes the gallbladder contract and may cause increased pain. Therefore, avoid fat in your diet over the next two days and follow a low-fat diet after that. If you are overweight, a low-fat diet will also help you lose weight. Follow Up with your doctor. There is a 50% chance that you will have another episode of pain from your gallstones during the next 2 years. Removal of the gallbladder is the treatment of choice to prevent this. Schedule an appointment with your own doctor during the next week to discuss the treatment options. Get Prompt Medical Attention if any of the following occur: Pain gets worse or moves to the right lower abdomen Repeated vomiting Swelling of the abdomen Pain lasts over 6 hours Fever of 100.4F (38C) or higher, or as directed by your healthcare provider Weakness, dizziness or fainting Dark urine or light colored stools Yellow color of the skin or eyes Chest, arm, back, neck or jaw pain High Blood Pressure -- To Be Confirmed [No Tx] Your blood pressure was higher today than normal. Sometimes anxiety or pain can cause a temporary rise in blood pressure that later returns to normal. If your blood pressure is high on one measurement, this does not mean that you have hypertension (a chronic illness). However, you must have your blood pressure measured again within the next few days to find out if its still high. A normal blood pressure is 120/80 or less. The first (top) number is the "systolic" pressure. The second (bottom) number is the "diastolic" pressure. Hypertension exists when either the top number is 140 or higher, OR the bottom number is 90 or higher on repeated measurements. Blood pressure in the range of 120-140 (systolic) or 80-89 (diastolic) is considered "pre-hypertension". This means your are at risk for getting hypertension. You should have regular blood pressure checks to be sure your blood pressure is not rising. Home Care: Measure your blood pressure on 3 different days and write down the results. This can be done at your doctor's office or this facility. Some pharmacies and grocery stores offer automated blood pressure machines for your use. Follow Up: If your blood pressure is "high" (over 120/80) on 2 out of 3 days, you will need to follow up with your doctor for further evaluation and treatment. DO NOT PUT THIS OFF! Untreated high blood pressure increases the risk for heart attack, also known as acute myocardial infarction, or AMI, and stroke. It is a treatable condition. Get Prompt Medical Attention if any of the following occur: Chest pain or shortness of breath Severe headache Throbbing or rushing sound in the ears Nosebleed Sudden severe abdominal pain Extreme drowsiness, confusion or fainting Dizziness or vertigo (dizziness with spinning sensation) Weakness of an arm or leg or one side of the face Difficulty with speech or vision [place] Diet A bland diet is used for patients with an upset stomach. It consists of foods that are mild and easy to digest. It is better to eat small frequent meals rather than three large meals a day. BEVERAGES OK: Fruit juices, non-caffeinated teas and coffee, non-carbonated antony AVOID: Carbonated beverage, caffeinated tea and coffee, all alcoholic beverages BREAD OK: Refined white, wheat or rye bread, amol or soda crackers, Genia toast, plain rolls, bagels AVOID: Whole-grain bread CEREAL OK: Refined cereals: cooked or ready to eat AVOID: Whole grain cereals and granola, or those containing bran, seeds or nuts DESSERTS OK: Peanut butter and all others except those to "avoid" AVOID: Chocolate, cocoa, coconut, popcorn, nuts, seeds, jam, marmalade FRUITS OK: Canned, cooked, frozen or fresh fruits without seeds or tough skin AVOID: Olives, skin and seeds of fruit MEATS OK: All fresh or preserved meat, fish and fowl AVOID: Any that are prepared with those spices to "avoid" CHEESE & EGGS OK: Eggs, cottage cheese, cream cheese, other cheeses AVOID: All cheeses made with those spices to "avoid" POTATOES & PASTA OK: Potato, rice, macaroni, noodles, spaghetti AVOID: None SOUPS OK: All soups without heavy seasoning AVOID: Soups made with those spices to "avoid" VEGETABLES OK: Canned, cooked, fresh or frozen mildly flavored vegetables without seeds, skins or coarse fiber AVOID: Vegetables prepared with those spices to "avoid"; skin and seeds of vegetables and those with coarse fiber SPICES OK: Salt, lemon and [place] juice, vinegar, all extracts, lizzette, cinnamon, thyme, mace, allspice, paprika AVOID: [place] powder, cloves, pepper, seed spices, garlic, gravy pickles, highly seasoned salad dressings Hydrocodone Bitartrate, Acetaminophen Oral tablet What is this medicine? ACETAMINOPHEN; HYDROCODONE (a set a DIAN corwin fen; carlos droe KOE done) is a pain reliever. It is used to treat mild to moderate pain. How should I use this medicine? Take this medicine by mouth. Swallow it with a full glass of water. Follow the directions on the prescription label. If the medicine upsets your stomach, take the medicine with food or milk. Do not take more than you are told to take. Talk to your kitchen and counter worker regarding the use of this medicine in children. This medicine is not approved for use in children. What side effects may I notice from receiving this medicine? Side effects that you should report to your doctor or health care program resident as soon as possible: allergic reactions like skin rash, itching or hives, swelling of the face, lips, or tongue breathing problems confusion feeling faint or lightheaded, falls stomach pain yellowing of the eyes or skin Side effects that usually do not require medical attention (report to your doctor or health care program resident if they continue or are bothersome): nausea, vomiting stomach upset What may interact with this medicine? alcohol antihistamines isoniazid medicines for depression, anxiety, or psychotic disturbances medicines for sleep muscle relaxants naltrexone narcotic medicines (opiates) for pain phenobarbital ritonavir tramadol What if I miss a dose? If you miss a dose, take it as soon as you can. If it is almost time for your next dose, take only that dose. Do not take double or extra doses. Where should I keep my medicine? Keep out of the reach of children. This medicine can be abused. Keep your medicine in a safe place to protect it from theft. Do not share this medicine with anyone. Selling or giving away this medicine is dangerous and against the law. Store at room temperature between 15 and 30 degrees C (59 and 86 degrees F). Protect from light. Keep container tightly closed. Throw away any unused medicine after the expiration date. Discard unused medicine and used packaging carefully. Pets and children can be harmed if they find used or lost packages. What should I tell my health care provider before I take this medicine? They need to know if you have any of these conditions: brain tumor Crohn's disease, inflammatory bowel disease, or ulcerative colitis drink more than 3 alcohol-containing drinks per day drug abuse or addiction head injury heart or circulation problems kidney disease or problems going to the bathroom liver disease lung disease, asthma, or breathing problems an unusual or allergic reaction to acetaminophen, hydrocodone, other opioid analgesics, other medicines, foods, dyes, or preservatives or trying to get breast-feeding What should I watch for while using this medicine? Tell your doctor or health care program resident if your pain does not go away, if it gets worse, or if you have new or a different type of pain. You may develop tolerance to the medicine. Tolerance means that you will need a higher dose of the medicine for pain relief. Tolerance is normal and is expected if you take the medicine for a long time. Do not suddenly stop taking your medicine because you may develop a severe reaction. Your body becomes used to the medicine. This does NOT mean you are addicted. Addiction is a behavior related to getting and using a drug for a non-medical reason. If you have pain, you have a medical reason to take pain medicine. Your doctor will tell you how much medicine to take. If your doctor wants you to stop the medicine, the dose will be slowly lowered over time to avoid any side effects. You may get drowsy or dizzy when you first start taking the medicine or change doses. Do not drive, use machinery, or do anything that may be dangerous until you know how the medicine affects you. Stand or sit up slowly. There are different types of narcotic medicines (opiates) for pain. If you take more than one type at the same time, you may have more side effects. Give your health care provider a list of all medicines you use. Your doctor will tell you how much medicine to take. Do not take more medicine than directed. Call emergency for help if you have problems breathing. The medicine will cause constipation. Try to have a bowel movement at least every 2 to 3 days. If you do not have a bowel movement for 3 days, call your doctor or health care program resident. Too much acetaminophen can be very dangerous. Do not take Tylenol (acetaminophen) or medicines that contain acetaminophen with this medicine. Many non-prescription medicines contain acetaminophen. Always read the labels carefully. Dicyclomine Hydrochloride Oral tablet What is this medicine? DICYCLOMINE (dye SYE peyton meen) is used to treat bowel problems including irritable bowel syndrome. How should I use this medicine? Take this medicine by mouth with a glass of water. Follow the directions on the prescription label. It is best to take this medicine on an empty stomach, 30 minutes to 1 hour before meals. Take your medicine at regular intervals. Do not take your medicine more often than directed. Talk to your kitchen and counter worker regarding the use of this medicine in children. Special care may be needed. While this drug may be prescribed for children as young as 6 months of age for selected conditions, precautions do apply. Patients over 65 years old may have a stronger reaction and need a smaller dose. What side effects may I notice from receiving this medicine? Side effects that you should report to your doctor or health care program resident as soon as possible: agitation, nervousness, confusion difficulty swallowing dizziness, drowsiness fast or slow heartbeat hallucinations pain or difficulty passing urine Side effects that usually do not require medical attention (report to your doctor or health care program resident if they continue or are bothersome): constipation headache nausea or vomiting sexual difficulty What may interact with this medicine? amantadine antacids benztropine digoxin disopyramide medicines for allergies, colds and breathing difficulties medicines for alzheimer's disease medicines for anxiety or sleeping problems medicines for depression or psychotic disturbances medicines for diarrhea medicines for pain metoclopramide tegaserod What if I miss a dose? If you miss a dose, take it as soon as you can. If it is almost time for your next dose, take only that dose. Do not take double or extra doses. Where should I keep my medicine? Keep out of the reach of children. Store at room temperature below 30 degrees C (86 degrees F). Protect from light. Throw away any unused medicine after the expiration date. What should I tell my health care provider before I take this medicine? They need to know if you have any of these conditions: difficulty passing urine esophagus problems or heartburn glaucoma heart disease, or previous heart attack myasthenia gravis prostate trouble stomach infection, or obstruction ulcerative colitis an unusual or allergic reaction to dicyclomine, other medicines, foods, dyes, or preservatives or trying to get breast-feeding What should I watch for while using this medicine? You may get drowsy, dizzy, or have blurred vision. Do not drive, use machinery, or do anything that needs mental alertness until you know how this medicine affects you. To reduce the risk of dizzy or fainting spells, do not sit or stand up quickly, especially if you are an older patient. Alcohol can make you more drowsy, avoid alcoholic drinks. Stay out of bright light and wear sunglasses if this medicine makes your eyes more sensitive to light. Avoid extreme heat (hot tubs, saunas). This medicine can cause you to sweat less than normal. Your body temperature could increase to dangerous levels, which may lead to heat stroke. Antacids can stop this medicine from working. If you get an upset stomach and want to take an antacid, make sure there is an interval of at least 1 to 2 hours before or after you take this medicine. Your mouth may get dry. Chewing sugarless gum or sucking hard candy, and drinking plenty of water may help. Contact your doctor if the problem does not go away or is severe. You have been given the following additional information: Biliary Colic With Gallstone (Confirmed) Hypertension, To Be Confirmed Diet, [place] (Adult) Hydrocodone Bitartrate, Acetaminophen Oral tablet Dicyclomine Hydrochloride Oral tablet Rest. Do not work. Do not go to school for three days. (Electronically signed by Robert Vasquez DO 10/26/2016 14:26)
--- NOTE | 2016-10-26 14:26 | ED MAR SUMMARY ---
..... Medication Administration Record [facility] [address] [place] [address] Patient: FRANK MEDINA Visit ID: [id number] 36y, M Weight: 116.5 kg Height/Length: 67 in BMI: 40.3 ALLERGIES: No Known Drug Allergy Start 09:30 10/26/2016 Cynthia Vasquez R.N., Stop 12:18 10/26/2016 Sofiya Bhatt R.N. Medication Administered: IV NS (SALINE), Dose: IV Fluids over 1 hour(s), Rate: 1000 mL/hr, Dispensed: 1000 mL bag, Site: #1 left hand. Medication Ordered: IV NS : initial bolus 1000 mL (1000 mL/hr), then 500 mL/hr for X2 (NOW). Given 09:46 10/26/2016 Cynthia Vasquez R.N. Medication Administered: REGLAN [IVP] (METOCLOPRAMIDE HCL), Dose: 10 mg IVP over 2 minute(s), Site: #1 left hand. Medication Ordered: Reglan IV 10 mg (NOW). Given 09:46 10/26/2016 Cynthia Vasquez R.N. Medication Administered: PROTONIX [IVP] (PANTOPRAZOLE SODIUM), Dose: 40 mg IVP over 5 minute(s), Site: #1 left hand. Medication Ordered: Protonix IVP 40mg 40 mg (Mix in NS 10ml over 2min). Given 09:47 10/26/2016 Cynthia Vasquez R.N. Medication Administered: ZOFRAN [IVP] (ONDANSETRON HCL), Dose: 4 mg IVP over 2 minute(s), Site: #1 left hand. Medication Ordered: Zofran IV 4 mg (NOW). Given 09:50 10/26/2016 Cynthia Vasquez R.N. Medication Administered: TORADOL [IVP], Dose: 15 mg IVP over 1 minute(s), Site: #1 left hand. Medication Ordered: Toradol IV 15 mg (NOW).
--- NOTE | 2016-10-26 14:26 | ED MAR SUMMARY ---
..... Medication Administration Record [facility] [address] [place] [address] Patient: FRANK MEDINA Visit ID: [id number] 36y, M Weight: 116.5 kg Height/Length: 67 in BMI: 40.3 ALLERGIES: No Known Drug Allergy Start 09:30 10/26/2016 Cynthia Vasquez R.N., Stop 12:18 10/26/2016 Sofiya Bhatt R.N. Medication Administered: IV NS (SALINE), Dose: IV Fluids over 1 hour(s), Rate: 1000 mL/hr, Dispensed: 1000 mL bag, Site: #1 left hand. Medication Ordered: IV NS : initial bolus 1000 mL (1000 mL/hr), then 500 mL/hr for X2 (NOW). Given 09:46 10/26/2016 Cynthia Vasquez R.N. Medication Administered: REGLAN [IVP] (METOCLOPRAMIDE HCL), Dose: 10 mg IVP over 2 minute(s), Site: #1 left hand. Medication Ordered: Reglan IV 10 mg (NOW). Given 09:46 10/26/2016 Cynthia Vasquez R.N. Medication Administered: PROTONIX [IVP] (PANTOPRAZOLE SODIUM), Dose: 40 mg IVP over 5 minute(s), Site: #1 left hand. Medication Ordered: Protonix IVP 40mg 40 mg (Mix in NS 10ml over 2min). Given 09:47 10/26/2016 Cynthia Vasquez R.N. Medication Administered: ZOFRAN [IVP] (ONDANSETRON HCL), Dose: 4 mg IVP over 2 minute(s), Site: #1 left hand. Medication Ordered: Zofran IV 4 mg (NOW). Given 09:50 10/26/2016 Cynthia Vasquez R.N. Medication Administered: TORADOL [IVP], Dose: 15 mg IVP over 1 minute(s), Site: #1 left hand. Medication Ordered: Toradol IV 15 mg (NOW).
== END 2016-10-26 12:25 | disposition home or self-care (01) ==
LOC: ED SRH 09:07
DX: K80.70 Calculus of gallbladder and bile duct without cholecystitis without obstruction (principal); I10 Essential (primary) hypertension; E66.01 Morbid (severe) obesity due to excess calories; Z68.41 Body mass index [BMI] 40.0-44.9, adult
CPT/HCPCS: 90004; 90100; 90616; 91320; 92235; 92530; 92610; 92720; 94060; 95059